=== PATIENT | male | born 1995 | race Caucasian/White ===

== ENCOUNTER 2016-08-19 10:19 | Outpatient (CLI) | payer OTHER | END 2016-08-19 10:20 | disposition home or self-care (01) | DX: M25.561 Pain in right knee (principal) ==

== ENCOUNTER 2020-02-18 15:42 | Emergency (ER) | payer MEDICAID ==
[2020-02-18] MEDS ORDERED: KETOROLAC 60 MG/2 ML VIAL IM STA (17:28)
[2020-02-18] MEDS ORDERED: DEXAMETHASONE 10 MG/ML VIAL PO STA (17:28)
[2020-02-18] MEDS ORDERED: CHERRY SYRUP 10 ML UDC PO ONE (17:28)
--- NOTE | 2020-02-18 18:16 | ED Physician Documentation ---
PD HPI BACK PAIN - Stated complaint Stated Complaint: STIFF BACK/NECK - Chief complaint Chief Complaint: Back Pain - History obtained from History obtained from: Patient, Family - History of Present Illness Timing - onset: How many days ago (4) Timing - duration: Days (4) Timing - details: Abrupt onset, Still present Location: Upper Quality: Spasm, Sharp Associated symptoms: No: Fever, Weakness, Numbness, Incontinent of urine, Unable to urinate, Hematuria, Incontinent of stool Improves with: Rest, Other (heating pack) Worsened by: Movement Similar symptoms before: No diagnosis Recently seen: Not recently seen - Additional information Additional information: Previously well 25-year-old male reports that he was playing golf extensively last week and 4 days ago he developed stiffness in his neck and upper back. He has had persistence of this stiffness and feels like it is a pressure-like sensation. He is concerned because he has had a prior injury to this area when he was underneath a trailer and struck his back on a metal beam. He reports having numbness and tingling to his feet and hands for 2 months this resolved this was years ago. He has been sleeping with a heating pack on. He did go in and see someone and had cupping done as well as acupuncture, none of this has helped. Review of Systems Constitutional: denies: Fever Eyes: denies: Decreased vision Ears: denies: Ear pain Nose: denies: Congestion Throat: denies: Sore throat Cardiac: denies: Chest pain / pressure Respiratory: denies: Dyspnea, Cough GI: denies: Vomiting PD PAST MEDICAL HISTORY - Past Medical History Cardiovascular: None Respiratory: None Neuro: None Endocrine/Autoimmune: None GI: None : None HEENT: None Psych: None Musculoskeletal: Chronic back pain Derm: None - Past Surgical History Past Surgical History: No - Present Medications Home Medications: Ambulatory Orders Medication Instructions Recorded Confirmed Cyclobenzaprine [Flexeril] 10 mg PO TID PRN #20 tablet 02/18/20 - Allergies Allergies/Adverse Reactions: Allergies Allergy/AdvReac Type Severity Reaction Status Date / Time No Known Drug Allergies Allergy Verified 02/18/20 17:48 - Social History Does the pt smoke?: No Smoking Status: Never smoker Does the pt drink ETOH?: Yes Does the pt have substance abuse?: No - Immunizations Immunizations are current?: Yes - POLST Patient has POLST: No PD ED PE NORMAL - Vitals Vital signs reviewed: Yes (hypertensive ) - General General: Alert and oriented X 3, No acute distress, Well developed/nourished - HEENT HEENT: Atraumatic, PERRL, EOMI - Neck Neck: Supple, no meningeal sign, No bony TTP, Other (There is no significant tenderness or firmness to the muscles and he is able to move his neck in a full ROM. ) - Respiratory Respiratory: No respiratory distress - Derm Derm: Normal color, Warm and dry, No rash - Extremities Extremities: No deformity, No edema, No calf tenderness / cord - Neuro Neuro: Alert and oriented X 3, psychological assistant 2-12 intact, No motor deficit, No sensory deficit, Normal speech Eye Opening: Spontaneous Motor: Obeys Commands Verbal: Oriented GCS Score: 15 - Psych Psych: Normal mood, Normal affect Results - Vitals Vitals: Vital Signs - 24 hr 02/18/20 02/18/20 15:49 15:59 Temperature 99.2 C H 36.7 C Heart Rate 69 76 Respiratory 16 18 Rate Blood Pressure 162/90 H 163/88 H O2 Saturation 99 100 Oxygen O2 Source Room air PD MEDICAL DECISION MAKING - ED course Complexity details: re-evaluated patient, considered differential, d/w patient, d/w family ED course: 25-year-old male with an acute myofascial strain to his trapezius has pain along the trapezius. I suspect is from overdoing it and golf. He has been using a heating pack nearly continuously and I suspect this may be why his symptoms have not resolved. Here in the emergency department he is administered a dose of dexamethasone 10 mg orally and 60 mg of Toradol.He denies any significant pain associated with all of this just a sensation of pressure and stiffness. Departure - Departure Disposition: 01 Home, Self Care Clinical Impression: Acute cervical myofascial strain Qualifiers: Encounter type: initial encounter Qualified Code(s): S16.1XXA - Strain of muscle, fascia and tendon at neck level, initial encounter Condition: Stable Instructions: ED Myofascial Pain Syndrome Follow-Up: [facility] [Provider Group] Prescriptions: Cyclobenzaprine [Flexeril] 10 mg PO TID PRN #20 tablet PRN Reason: Spasms
[2020-02-18 18:33] VITALS: BP 127/93
== END 2020-02-18 18:33 | disposition home or self-care (01) ==
LOC: ED 15:42
DX: S16.1XXA Strain of muscle, fascia and tendon at neck level, initial encounter (principal); M54.6 Pain in thoracic spine; X50.9XXA Other and unspecified overexertion or strenuous movements or postures, initial encounter; Y93.53 Activity, golf; Y92.39 Other specified sports and athletic area as the place of occurrence of the external cause
CPT/HCPCS: 96372; 99283; 99284; A9270